=== PATIENT | male | born 1960 | race Caucasian/White ===

== ENCOUNTER 2023-11-22 08:00 | Emergency (ER) | payer BC, OTHER ==
[2023-11-22 08:14] VITALS: PULSE 69; TEMP 97.4; O2SAT 99
--- NOTE | 2023-11-22 08:17 | ERPHSYRPT ---
- History of Present Illness Time Seen by Provider: 11/22/23 08:17 Historian: patient Exam Limitations: no limitations Patient Subjective Stated Complaint: Pt c/o of LLQ pain with a history of diverticulitis Triage Nursing Assessment: Pt brought self to the ER, hypertensive, rates pain as 8/10 to LLQ, denies N&V, last BM yesterday, last intake yesterday afternoon, pain with palpatation, pulses normal, skin n/w/d, doesn't appear to be in any distress Physician History: The patient, with a history of diverticulitis and GERD, presents with a suspected diverticulitis flare-up. He describes a stabbing pain in the left l ower side of his abdomen, which is tender to touch. The pain started yesterday and has been constant since. He denies having a fever but reports experiencing a 'tingly chill' sensation. He has not experienced any nausea or vomiting, but he did have a slightly loose bowel movement yesterday. He denies any changes in the color or consistency of his stool and has not noticed any blood. The patient has had two previous episodes of diverticulitis, with the last one occurring about two years ago. His symptoms typically improve with antibiotics. He also reports a history of stomach issues, including heartburn, and was told by his doctor that he may need to see a pupil personnel worker if his symptoms did not improve. Timing/Duration: yesterday Activities at Onset: rest Quality: stabbing Abdominal Pain Onset Location: LLQ Pain Radiation: no radiation Severity of Pain-Max: severe Severity of Pain-Current: moderate Modifying Factors: Improves With: nothing. Worsens With: palpation Associated Symptoms: loss of appetite, nausea, No back, No chest pain, No diaphoresis, No diarrhea, No fever/chills, No shortness of breath, No testicular pain, No vomiting Previous symptoms: same symptoms as today Allergies/Adverse Reactions: No Known Drug Allergies Allergy (Verified 11/22/23 08:14) Home Medications: Lisinopril/Hydrochlorothiazide [Lisinopril-Hctz 20-12.5 mg Tab] 1 each PO DAILY 12/01/12 [History] Pravastatin Sodium 40 mg PO HS 12/01/12 [History] carvediloL [Coreg] 25 mg PO BID 12/01/12 [History] Iron Polysaccharides Complex [Ferrex 150] 150 mg PO DAILY 11/22/23 [History] PANTOPRAZOLE 40 mg Tablet [Protonix 40MG Tablet] 40 mg PO QAM 11/22/23 [History] Hx Influenza Vaccination/Date Given: Yes (2011) Hx Pneumococcal Vaccination/Date Given: No Travel Risk - International Travel Have you traveled outside of the country in past 3 weeks: No - Emerging Infectious Disease Are you exhibiting symptoms associated with any current EIDs: Yes Symptoms: Abdominal Pain - Review of Systems All Other Systems: Reviewed and Negative - Past Medical History Pertinent Past Medical History: Yes Neurological History: No Pertinent History ENT History: No Pertinent History Cardiac History: Arrhythmia, High Cholesterol, Hypertension Respiratory History: No Pertinent History Endocrine Medical History: No Pertinent History Musculoskeletal History: Arthritis GI Medical History: Diverticulitis, GERD History: Other Psycho-Social History: No Pertinent History Male Reproductive Disorders: No Pertinent History Other Medical History: back pain- sciatic. one time arrhythmia- no issues since. hx kidney stones. anemia - Past Surgical History Past Surgical History: Yes Neuro Surgical History: No Pertinent History Cardiac: No Pertinent History Respiratory: No Pertinent History Gastrointestinal: No Pertinent History Genitourinary: No Pertinent History Musculoskeletal: Orthopedic Surgery Male Surgical History: No Pertinent History Other Surgical History: left rotator cuff repair. right carpel tunnel and ulner release - Social History Smoking Status: Never smoker Exposure to second hand smoke: No Drug Use: none - Social Determinants of Health Will the patient participate in the screening: Yes Do you worry about a steady place to live?: No Do you have any problems with any of the following?: No known problems In the past 12 months,have you had to go without utilities?: No Transportation Issues: No Has anyone in your support network made you feel unsafe?: No Have you or anyone in your house had to go without enough: No - Nursing Vital Signs Nursing Vital Signs: Initial Vital Signs Temperature 97.4 F 11/22/23 08:08 Pulse Rate 69 11/22/23 08:08 Blood Pressure 174/96 11/22/23 08:08 O2 Sat by Pulse Oximetry 99 11/22/23 08:08 Pain Scale Pain Intensity 8 - Physical Exam General Appearance: no apparent distress Respiratory Exam: normal breath sounds, lungs clear, airway intact, No respiratory distress Cardiovascular Exam: regular rate/rhythm, normal heart sounds, capillary refill <2 sec, No edema Gastrointestinal/Abdomen Exam: soft, normal bowel sounds, tenderness (LLQ), No distention, No mass, No guarding, No rebound Extremity Exam: normal inspection, No swelling, No tenderness Neurologic Exam: alert, oriented x 3, cooperative Skin Exam: normal color, warm, dry, No rash SpO2 Interpretation: normal SpO2: 99 O2 Delivery: Room Air - Course Nursing assessment & vital signs reviewed: Yes Ordered Tests: Medication Summary Discontinued Medications Generic Name Dose Route Start Last Admin Trade Name Nimo PRN Reason Stop Dose Admin Ceftriaxone Sodium 1,000 mg 11/22/23 08:31 11/22/23 08:36 Ceftriaxone Sodium 1000 Mg Inj Vial IM 11/22/23 08:32 1,000 mg STAT ONE Administration Ceftriaxone Sodium Confirm 11/22/23 08:33 Ceftriaxone Sodium 1000 Mg Inj Vial Administered 11/22/23 08:34 Dose 1,000 mg .ROUTE .STK-MED ONE Metronidazole 500 mg 11/22/23 08:31 11/22/23 08:37 Metronidazole 500 Mg Tablet PO 11/22/23 08:32 500 mg STAT ONE Administration Metronidazole Confirm 11/22/23 08:33 Metronidazole 500 Mg Tablet Administered 11/22/23 08:34 Dose 500 mg .ROUTE .STK-MED ONE - Progress Progress: unchanged Progress Note: 11/22/23 08:27 Diverticulitis Third episode of left lower quadrant pain, consistent with prior episodes of diverticulitis. No fever, nausea, vomiting, or blood in stool. Mild diarrhea. Last colonoscopy 2-3 years ago. Prior episodes resolved with antibiotics. -Afebrile, HR wnl, no hypotension, reassuring abd exam, 1 day hx of sxs support treatment without advanced imaging at this time. -Administer Rocephin injection and Flagyl pill in ER today. -Prescribe Augmentin and Flagyl for outpatient treatment. -Advise patient to return if abd pain worsens, develop fever, or see blood in stool for possible imaging. Gastroesophageal Reflux Disease (GERD) History of GERD with recent stomach issues. Prior discussion of possible referral to pupil personnel worker. -No specific plan discussed in this visit. Counseled pt/family regarding: diagnosis, need for follow-up Medical Desision Making - Diagnostic Testing Diagnostic test were ordered, analyzed, and reviewed by me: No - Risk of complications The pt has a mod risk of morbidity or mortality based on: Need for prescription drug management - Departure Departure Disposition: Home Clinical Impression: Diverticulitis, LLQ abdominal tenderness Condition: Good Critical Care Time: No Referrals: MARISSA VILLAREAL MD [Primary Care Provider] - Follow up/PCP as directed Instructions: Diverticulitis Prescriptions: Amox Tr/Potass Clav. 875 mg [Augmentin 875-125 Tablet] 875 mg PO BID 10 Days #20 tablet Metronidazole 500 mg [Flagyl 500 MG] 500 mg PO TID 10 Days #30 tablet
[2023-11-22] MEDS ORDERED: Rocephin 1000 MG INJ ONE (08:33)
[2023-11-22] MEDS ORDERED: Flagyl 500 MG ONE (08:33)
[2023-11-22] MEDS: Rocephin 1000 MG INJ IM ONE (08:36)
[2023-11-22] MEDS: Flagyl 500 MG PO ONE (08:37)
[2023-11-22 08:42] VITALS: BP 135/81
== END 2023-11-22 08:58 | disposition home or self-care (01) ==
LOC: ED 08:00
DX: K57.92 Diverticulitis of intestine, part unspecified, without perforation or abscess without bleeding (principal); R10.32 Left lower quadrant pain; Z79.899 Other long term (current) drug therapy; Z87.19 Personal history of other diseases of the digestive system
CPT/HCPCS: 96372; 99283; J0696; A9270-GY